=== PATIENT | female | born 1970 | race Caucasian/White ===

== ENCOUNTER 2023-10-21 06:32 | Day surgery (SDC) | payer OTHER ==
[~2023-10-21] VITALS: Ht 170.2 cm; Wt 127.9 kg
[2023-10-21] MEDS ORDERED: SIMETHICONE 40 MG/0.6 ML ML ONE (06:48)
[2023-10-21] MEDS ORDERED: MEPERIDINE HCL/PF 25 MG/ML DISP.SYRIN ONE (06:48)
[2023-10-21] MEDS ORDERED: MIDAZOLAM HCL 5 MG/5 ML VIAL ONE ×2 (06:49→09:03)
[2023-10-21 08:48] VITALS: O2SAT 98
[2023-10-21] MEDS ORDERED: MEPERIDINE 100 MG INJ. 100 MG/ML VIAL ONE (08:49)
[2023-10-21] MEDS ORDERED: BENZOCAINE 20% 0.5mL UD SPRAY MM ONE (08:51)
[2023-10-21] MEDS ORDERED: ONDANSETRON HCL 4 MG/2 ML VIAL ONE (09:17)
[2023-10-21 20:34] VITALS: BP_SYST 135; PULSE 79; RESP 24
== END 2023-10-21 10:52 | disposition home or self-care (01) ==
LOC: SDS 06:32 → SMU 06:33 → SDS 10:52
PROVIDERS: ATTEND Internal Medicine
DX: K59.00 Constipation, unspecified (principal); K29.50 Unspecified chronic gastritis without bleeding; D12.0 Benign neoplasm of cecum; D12.5 Benign neoplasm of sigmoid colon; K44.9 Diaphragmatic hernia without obstruction or gangrene; J45.909 Unspecified asthma, uncomplicated; I10 Essential (primary) hypertension; E78.5 Hyperlipidemia, unspecified; Z79.899 Other long term (current) drug therapy
CPT/HCPCS: 45380; 45381; 45385; 43239; 99152; 88305; 88312; 88313; 99153; G0378; J2250; J2405; J2175; 45382; 45384